=== PATIENT | female | born 1990 | race Two or more races ===

== ENCOUNTER 2017-01-27 22:47 | Outpatient (CLI) | payer MEDICAID ==
[2017-01-28 00:17] LABS: APPEARANCE,URINE SLIGHTLY-CLOUDY; BILIRUBIN,URINE NEGATIVE (NEGATIVE); GLUCOSE, URINE 50 mg/dL (NEGATIVE); KETONES,URINE TRACE mg/dL (NEGATIVE); LEUKOCYTE ESTERASE,URINE TRACE (NEGATIVE); NITRITE,URINE NEGATIVE (NEGATIVE); PROTEIN,URINE NEGATIVE (NEGATIVE); URINE SPECIFIC GRAVITY 1.029; UROBILINOGEN,URINE NEGATIVE mg/dL (<2.0)
[2017-01-28 00:31] LABS: URINE BARBITURATES SCREEN NEGATIVE; URINE METHADONE SCREEN NEGATIVE; URINE OPIATES LOW NEGATIVE; URINE PHENCYCLIDINE SCREEN NEGATIVE
== END 2017-01-28 00:51 | disposition home or self-care (01) ==
LOC: LC 22:47
PROVIDERS: ATTEND Obstetrics & Gynecology
PROC: 4A1HXCZ Monitoring of Products of Conception, Cardiac Rate, External Approach (ICD-10-PCS; principal; 2017-01-27)
DX: O47.03 False labor before 37 completed weeks of gestation, third trimester (principal); Z3A.29 29 weeks gestation of pregnancy
CPT/HCPCS: 76815; 80307; 81001

== ENCOUNTER 2017-03-24 23:04 | Outpatient (CLI) | payer MEDICAID ==
[2017-03-25 00:01] LABS: APPEARANCE,URINE SLIGHTLY-CLOUDY; BILIRUBIN,URINE NEGATIVE (NEGATIVE); GLUCOSE, URINE 50 mg/dL (NEGATIVE); KETONES,URINE TRACE mg/dL (NEGATIVE); LEUKOCYTE ESTERASE,URINE TRACE (NEGATIVE); NITRITE,URINE NEGATIVE (NEGATIVE); PROTEIN,URINE 30 mg/dL (NEGATIVE); URINE SPECIFIC GRAVITY 1.028; UROBILINOGEN,URINE NEGATIVE mg/dL (<2.0)
[2017-03-25 00:16] LABS: URINE BARBITURATES SCREEN NEGATIVE; URINE METHADONE SCREEN NEGATIVE; URINE OPIATES LOW NEGATIVE; URINE PHENCYCLIDINE SCREEN NEGATIVE
== END 2017-03-25 00:46 | disposition home or self-care (01) ==
LOC: LC 23:04
PROVIDERS: ATTEND Student in an Organized Health Care Education/Training Program
PROC: 4A1HXCZ Monitoring of Products of Conception, Cardiac Rate, External Approach (ICD-10-PCS; principal; 2017-03-24)
DX: O47.1 False labor at or after 37 completed weeks of gestation (principal); Z3A.37 37 weeks gestation of pregnancy
CPT/HCPCS: 59025; 80307; 81005

== ENCOUNTER 2017-04-04 05:00 | Inpatient (IN) | payer MEDICAID ==
[2017-04-01 10:36] LABS: ABSOLUTE EOSINOPHILS # (AUTO) 0.1 10^3/uL (0.0-0.6); ABSOLUTE LYMPHOCYTES (AUTO) 2.6 10^3/uL (0.5-4.7); ABSOLUTE MONOCYTES (AUTO) 0.5 10^3/uL (0.1-1.4); ABSOLUTE NEUT (AUTO) 7.8 10^3/uL (1.7-8.2); BASOPHILS % (AUTO) 0.3 % (0-2); EOSINOPHILS % (AUTO) 1.2 % (0-6); HEMATOCRIT 38.9 % (36.0-47.0); HEMOGLOBIN 12.7 g/dL (12.0-15.5); HGB HCT DIFFERENCE -0.8; LYMPHOCYTES % (AUTO) 23.1 % (13-45); MEAN CORPUSCULAR HEMOGLOBIN 28.1 pg (27.0-33.4); MEAN CORPUSCULAR HGB CONC 32.7 g/dL (32.0-36.0); MEAN CORPUSCULAR VOLUME 86 fl (80-97); MONOCYTES % (AUTO) 4.8 % (3-13); RED BLOOD COUNT 4.52 10^6/uL (3.72-5.28); RED CELL DISTRIBUTION WIDTH 13.4 % (11.5-14.0); SEGMENTED NEUTROPHILS % (AUTO) 70.6 % (42-78); WHITE BLOOD COUNT 11.1 10^3/uL (4.0-10.5)
[2017-04-01 10:38] LABS: APPEARANCE,URINE CLEAR; BILIRUBIN,URINE NEGATIVE (NEGATIVE); GLUCOSE, URINE NEGATIVE (NEGATIVE); KETONES,URINE NEGATIVE (NEGATIVE); LEUKOCYTE ESTERASE,URINE NEGATIVE (NEGATIVE); NITRITE,URINE NEGATIVE (NEGATIVE); PROTEIN,URINE NEGATIVE (NEGATIVE); UROBILINOGEN,URINE NEGATIVE mg/dL (<2.0)
[2017-04-01 10:50] LABS: URINE BARBITURATES SCREEN NEGATIVE; URINE METHADONE SCREEN NEGATIVE; URINE OPIATES LOW NEGATIVE; URINE PHENCYCLIDINE SCREEN NEGATIVE
[~2017-04-04 05:00] MED LIST: RINGERS SOLUTION,LACTATED 1,000 ML IV PRN
[2017-04-04] MEDS ORDERED: CEFAZOLIN 1 GM/D5W RTU 1 GM/50 ML RTUPB IV ONE (05:30)
[2017-04-04] MEDS ORDERED: PROPOFOL INJ 200 MG/20 ML VIAL IV ONE (07:32)
[2017-04-04] MEDS ORDERED: OXYTOCIN 10 UNIT/ML VIAL ONE (07:33)
[2017-04-04] MEDS ORDERED: FENTANYL CITRATE INJ/PF 100 MCG/2 ML AMPUL ONE (07:33)
[2017-04-04] MEDS ORDERED: CLINDAMYCIN 900 MG/D5W RTU 50 ML IV ONE (07:33)
[2017-04-04] MEDS ORDERED: MIDAZOLAM 2 MG/2 ML INJ ONE (07:33)
--- NOTE | 2017-04-04 09:02 | Non Stress Test Report ---
Non Stress Test Datetime Report Generated by CPN: 04/04/2017 09:02 DEMOGRAPHIC EGA NST: 37.3 INDICATION Indication for Study: Ordered by Provider URINE RESULTS Urine Protein, NST: Positive Urine Ketones - NST: Positive Urine Glucose - NST: Positive Urine Blood - NST: Negative MONITORING Monitor Explained: Monitor Explained; Test Explained; Patient Verbalized Understanding Time on Monitor: 03/24/2017 23:25 Time off Monitor: 03/25/2017 00:38 NST Duration: 73 NST INTERVENTIONS NST Interventions: PO Hydration Physician Notified NST: Dr. Lancaster BABY A: [id number] BABY A Movement : Present Contraction Frequency : Irregular FHR Baseline : 145 Accelerations : 15X15 Decelerations : None Variability : Moderate 6-25bpm NST Review: Meets Criteria for Reactive NST NST Review and Verified By : Aubrey Sevilla Rn NSVic Results: Reactive NST REPORT Report Trigger: Send Report
[2017-04-04] MEDS ORDERED: ACETAMINOPHEN 100 ML IV ONE (09:24)
[2017-04-04] MEDS ORDERED: MORPHINE SULFATE 10 MG/ML INJ ONE (10:21)
[2017-04-04] MEDS ORDERED: ACETAMINOPHEN 325 MG TABLET PO PRN (10:33)
[2017-04-04] MEDS ORDERED: RINGERS SOLUTION,LACTATED 1,000 ML IV PRN (10:33)
[2017-04-04] MEDS ORDERED: OXYCODONE-ACETAMINOPHEN 5-325 MG TABLET PO PRN (10:33)
[2017-04-04] MEDS ORDERED: MEASLES,MUMPS&RUBELLA VACC/PF 0.5 ML VIAL SUBCUT PRN (10:33)
[2017-04-04] MEDS ORDERED: OXYTOCIN/NORMAL SALINE 1,000 ML IV PRN (10:33)
[2017-04-04] MEDS ORDERED: PROMETHAZINE HCL INJ 25 MG/1 ML VIAL IV PRN (10:33)
[2017-04-04] MEDS ORDERED: HYDROMORPHONE HCL INJ/PF 2 MG/ML AMPULE IV PRN (10:33)
[2017-04-04] MEDS ORDERED: DIPH/PERTUSS(ACELL)/TETANUS VAC/PF 0.5 ML SYR (>=10YO) IM PRN (10:33)
[2017-04-04] MEDS ORDERED: SIMETHICONE 80 MG TAB.CHEW PO PRN (10:33)
[2017-04-04] MEDS ORDERED: LIDOCAINE 2% INJ-PF (20 MG/ML) 10 ML AMPUL ONE (14:35)
[2017-04-04] MEDS ORDERED: ONDANSETRON HCL INJ/PF 4 MG/2 ML SDV ONE (14:35)
[2017-04-04] MEDS ORDERED: PHENYLEPHRINE HCL INJ/PF 10 MG/1 ML SDV ONE (14:35)
[2017-04-04] MEDS: OXYCODONE-ACETAMINOPHEN 5-325 MG TABLET PO PRN ×2 (15:57→21:05)
[2017-04-04] MEDS: KETOROLAC TROMETHAMINE INJ/PF 30 MG/1 ML SDV IV SCH ×2 (15:57→22:38)
[2017-04-04] MEDS: DOCUSATE SODIUM 100 MG CAPSULE PO SCH (18:12)
[2017-04-05] MEDS: KETOROLAC TROMETHAMINE INJ/PF 30 MG/1 ML SDV IV SCH (05:30)
[2017-04-05] MEDS: OXYCODONE-ACETAMINOPHEN 5-325 MG TABLET PO PRN ×2 (05:36→19:48)
[2017-04-05 06:34] LABS: HEMATOCRIT 29.4 % (36.0-47.0); HEMOGLOBIN 9.9 g/dL (12.0-15.5); HGB HCT DIFFERENCE 0.3; MEAN CORPUSCULAR HEMOGLOBIN 28.8 pg (27.0-33.4); MEAN CORPUSCULAR HGB CONC 33.6 g/dL (32.0-36.0); MEAN CORPUSCULAR VOLUME 86 fl (80-97); RED BLOOD COUNT 3.43 10^6/uL (3.72-5.28); RED CELL DISTRIBUTION WIDTH 13.8 % (11.5-14.0); WHITE BLOOD COUNT 12.2 10^3/uL (4.0-10.5)
--- NOTE | 2017-04-05 09:10 | PDOC PROGRESS REPORT ---
Subjective-OB Subjective: Post Delivery Day: 27 year old. Denies any needs at this time Awake in room, mother sleeping at BS, doing well, has been OOB walking, passing gas, eating well, good pain relief. Baby weighed 8-14, NO CIRC, breast feeding , voiding, no c/o Physical Exam (OB) Vital Signs: Temp Pulse Resp BP Pulse Ox 98.3 F 90 17 106/62 99 04/05/17 08:13 04/05/17 08:13 04/05/17 08:13 04/05/17 08:13 04/05/17 08:13 Intake & Output 04/04/17 04/05/17 04/06/17 06:59 06:59 06:59 Intake Total 1475 Output Total 1700 Balance -225 Weight 91.626 kg - Dressing Removed: No - medipore dressing in place with opsite dressing underneath Incision: Dressing - Lochia Lochia Amount: Small 10-25 ml Lochia Color: Rubra/Red - Abdomen Description: Tender, Soft Hernia Present: No Fundal Description: Firm Fundal Height: u/u - u/2 Objective-Diagnostic Laboratory: 04/05/17 06:23 04/05/17 06:23 WBC 12.2 H RBC 3.43 L Hgb 9.9 L Hct 29.4 L MCV 86 MCH 28.8 MCHC 33.6 RDW 13.8 Plt Count 218 Assessment and Plan(PN) - Assessment and Plan (1) Status post repeat low transverse section Is this a current diagnosis for this admission?: Yes (2) Anemia Qualifiers: Other causes of anemia: acute posthemorrhagic Is this a current diagnosis for this admission?: Yes - Time Spent with Patient Time with patient: Less than 15 minutes Smoking Education Provided: Over 3 minutes Medications reviewed and adjusted accordingly: Yes - Disposition Anticipated Discharge: Home Within: within 48 hours
[2017-04-05] MEDS: PRENATAL VITAMIN W-O CA NO5/FE FUMARATE/FA CAPSULE PO SCH (10:03)
[2017-04-05] MEDS: DOCUSATE SODIUM 100 MG CAPSULE PO SCH ×2 (10:03→17:21)
[2017-04-05] MEDS: IBUPROFEN 800 MG TABLET PO SCH ×3 (11:53→23:33)
[2017-04-06] MEDS: IBUPROFEN 800 MG TABLET PO SCH ×2 (06:11→11:28)
[2017-04-06] MEDS: OXYCODONE-ACETAMINOPHEN 5-325 MG TABLET PO PRN (06:14)
[2017-04-06] MEDS: PRENATAL VITAMIN W-O CA NO5/FE FUMARATE/FA CAPSULE PO SCH (09:19)
[2017-04-06] MEDS: DOCUSATE SODIUM 100 MG CAPSULE PO SCH (09:19)
--- NOTE | 2017-04-06 10:55 | PDOC DISCHARGE SUMMARY ---
Final Diagnosis Discharge Date: 04/06/17 - Final Diagnosis (1) Anemia Is this a current diagnosis for this admission?: Yes (2) Status post repeat low transverse section Is this a current diagnosis for this admission?: Yes Discharge Data - Discharge Medication Home Medications: Pnv95/Ferrous Fumarate/FA [ Vitamins Tablet] 1 tab PO DAILY 01/27/17 Ranitidine HCl [Zantac 75 mg Tablet] 75 mg PO BID 04/01/17 Docusate Sodium [Colace 100 mg Capsule] 100 mg PO BID #60 capsule 04/06/17 Ibuprofen [Motrin 800 mg Tablet] 800 mg PO Q6 #60 tablet 04/06/17 Oxycodone HCl/Acetaminophen [Percocet 5-325 mg Tablet] 2 tab PO Q4HP PRN #30 tablet 04/06/17 Gestational Age: 39.2 Reason(s) for Admission: Ceasarean Section-Repeat Procedures: NST Intrapartum Procedure(s): : Low Cervical, Transverse - Lyman Data Baby 1 Male Home with Mother: Yes Complications: No - Diagnosis Test Laboratory: Temp Pulse Resp BP Pulse Ox 98.2 F 78 16 115/70 99 04/06/17 08:19 04/06/17 08:19 04/06/17 08:19 04/06/17 08:19 04/06/17 08:19 04/01/17 04/01/17 04/05/17 09:50 09:52 06:23 RBC 4.52 3.43 L Hgb 12.7 9.9 L Hct 38.9 29.4 L Urine Opiates Screen NEGATIVE - Discharge information/Instructions Discharge Activity: Activity As Tolerated, No Driving, No Lifting Over 10 Pounds , Pelvic Rest, No tub bath Discharge Diet: Regular Disposition: HOME, SELF-CARE Follow up with: [facility] in: 1, Days
[2017-04-06 11:13] VITALS: BP 110/70
[2017-04-06] MEDS ORDERED: ONDANSETRON 4 MG TAB.RAPDIS ONE (11:26)
--- NOTE | 2017-05-10 15:32 | OPERATIVE REPORT E ---
Operative Report NAME: STEPHEN SWAIN : 1990 AGE: 27Y DATE OF SURGERY: 04/04/2017 ROOM: 227 PREOPERATIVE DIAGNOSES: 1. A 39 WEEK INTRAUTERINE . 2. HISTORY OF SECTION FOR REPEAT SECTION. POSTOPERATIVE DIAGNOSES: 1. A 39 WEEK INTRAUTERINE . 2. HISTORY OF SECTION FOR REPEAT SECTION. OPERATION: Repeat low transverse section. ROOFER APPRENTICE: None. SURGEON: Demond Pryor D.O. ANESTHESIA: Spinal. COMPLICATIONS: None. PATHOLOGY: Placenta. ESTIMATED BLOOD LOSS: 600 mL. FINDINGS: 1. Viable male infant at 0827 hours on 04/04/2017 with Apgars of 8 at one and 9 at five. 2. Normal-appearing bilateral fallopian tubes and ovaries. PROCEDURE: The patient was taken to the operating room where spinal anesthesia was administered. Once this was found to be adequate, she was placed in the dorsal supine position and prone on the operating room table with a left doherty tilt. She was then prepped and draped in the normal sterile fashion. A scalpel was then used to make a Pfannenstiel skin incision. The skin incision was carried down through the subcutaneous tissue to the layer of the fascia. The fascia was then incised in the midline and then fascial incision was then extended bilaterally using the Bovie cautery. The superior fascial edge was grasped with Ev clamps, elevated, and the rectus muscles were dissected off sharply and bluntly. Attention was then turned to the inferior fascial edge which was grasped with Ev clamps, elevated, and rectus muscles were dissected off sharply and bluntly. The rectus muscles were then in the midline. The peritoneum was identified and entered bluntly with the surgeon's hands. A bladder blade was inserted. A scalpel was then used to make a low transverse hysterotomy incision. The was found to be in cephalic position and delivered through this incision without difficulty and atraumatically. The nose and mouth were suctioned. The cord was clamped and cut. The infant was handed off to the waiting nurses. The placenta was then manually removed from the uterus. The uterus was then exteriorized and cleared of all debris. The uterus was then exteriorized. The hysterotomy incision was then reapproximated using 2 layers of 1-0 Vicryl in a running locking fashion. Following closure of the second layer, excellent hemostasis was noted. The uterus was then returned to the abdomen. Again, the hysterotomy incision was reinspected and found to have excellent hemostasis. The rectus muscle were then reapproximated using 1-0 Vicryl interrupted sutures. The fascia was then closed using 1-0 Vicryl in a running nonlocking fashion. The subcutaneous space was then made hemostatic using Bovie cautery and the skin was then closed with absorbable jay, covered with an Op-Site and then with a pressure dressing. At this point in time, the procedure was terminated. All sponge, lap, and needle counts were correct x2. The patient tolerated the procedure well. The patient was taken to the recovery room in stable condition. DICTATING PHYSICIAN: Demond Pryor DO [id number] PHY#: [id number] ID: [id number] JOB#: [id number] ACCT: [id number] cc:Demond Pryor D.O. >
== END 2017-04-06 12:08 | disposition home or self-care (01) | DRG 765 ==
LOC: 2S 05:00
PROVIDERS: ADMIT Obstetrics & Gynecology; ATTEND Obstetrics & Gynecology
PROC: 4A1HXCZ Monitoring of Products of Conception, Cardiac Rate, External Approach (ICD-10-PCS; 2017-04-04)
PROC: 10D00Z1 Extraction of Products of Conception, Low, Open Approach (ICD-10-PCS; principal; 2017-04-04 07:45)
DX: O34.211 Maternal care for low transverse scar from previous cesarean delivery (principal); O99.354 Diseases of the nervous system complicating childbirth; D62 Acute posthemorrhagic anemia; G43.909 Migraine, unspecified, not intractable, without status migrainosus; O99.02 Anemia complicating childbirth; Z83.3 Family history of diabetes mellitus; Z3A.39 39 weeks gestation of pregnancy; Z37.0 Single live birth
CPT/HCPCS: 1961; 36415; 59025; 80307; 81001; 85025; 85027; 86850; 86900; 86901; 94799; J0131; J1170; J1885; J2250; J2270; J2370; J2405; J2550; J2590; J2704; J3010; J3490; J7120; S0119

== ENCOUNTER 2017-08-07 04:16 | Emergency (ER) | payer MEDICAID ==
[2017-08-07 04:22] VITALS: BP 117/81
[2017-08-07] MEDS ORDERED: ACETAMINOPHEN WITH CODEINE #3 TABLET PO ONE (04:40)
--- NOTE | 2017-08-07 04:45 | ER Document Report ---
HPI - HPI Patient complains to provider of: dental pain Onset: Other - 10 days Onset/Duration: Worse Quality of pain: Achy Pain Level: 4 Context: Patient is 10 days status post dental extraction of her wisdom teeth. Patient denies any fever. Patient complains of continued pain at her extraction sites. Patient does complain of a suture that feels like it is poking her cheek on the left upper side. Patient has been taking antibiotics since her extraction and has 4 more days of antibiotics. Patient was given a prescription for Percocet but states that she is unable to take the medication as it makes her feel dizzy and lightheaded. Associated Symptoms: Other - Dental pain. denies: Headache, Nausea Exacerbated by: Denies Relieved by: Denies Similar symptoms previously: No Recently seen / treated by doctor: Yes - ROS ROS below otherwise negative: Yes Systems Reviewed and Negative: Yes All other systems reviewed and negative - CONSTITUTIONAL Constitutional: DENIES: Fever, Chills - EENT Notes: dental pain - RESPIRATORY Respiratory: DENIES: Coughing - GASTROINTESTINAL Gastrointestinal: DENIES: Nausea - MUSCULOSKELETAL Musculoskeletal: DENIES: Back Pain, Neck Pain - DERM Skin Color: Normal Skin Problems: None Past Medical History - General Information source: Patient - Social History Smoking Status: Never Smoker Frequency of alcohol use: None Drug Abuse: None Occupation: none Lives with: Family Family History: Reviewed & Not Pertinent Patient has suicidal ideation: No Patient has homicidal ideation: No - Medical History Medical History: Negative Renal/ Medical History: Denies: Hx Peritoneal Dialysis GI Medical History: Reports: Hx Gastroesophageal Reflux Disease - during . Denies: Hx Hiatal Hernia, Hx Ulcer Past Surgical History: Reports: Hx Section, Hx Oral Surgery Vertical Provider Document - CONSTITUTIONAL Agree With Documented VS: Yes Exam Limitations: No Limitations General Appearance: WD/WN, No Apparent Distress - INFECTION CONTROL TRAVEL OUTSIDE OF THE [place] IN LAST 30 DAYS: No - HEENT HEENT: Atraumatic, Normocephalic Mouth Diagram: 1 - tender, s/p extraction 2 - white, hard material, tender with palpation with shallow ulceration to buccal mucosa that abuts this white material - NECK Neck: Normal Inspection, Supple. negative: Lymphadenopathy-Left, Lymphadenopathy-Right - RESPIRATORY Respiratory: No Respiratory Distress O2 Sat by Pulse Oximetry: 99 - MUSCULOSKELETAL/EXTREMETIES Musculoskeletal/Extremeties: MAEW - NEURO Level of Consciousness: Awake, Alert, Appropriate - DERM Integumentary: Warm, Dry, No Rash Course - Re-evaluation Re-evalutation: 08/07/17 04:42 Patient with white hard material to left upper jaw concerning for possible tooth fragment. Patient encouraged to follow-up with oral surgeon on Tuesday when their office opens for further evaluation. Patient states she does have 4 more days worth of antibiotic. Patient encouraged to take her Motrin as previously prescribed as well as her antibiotic. Patient unable to tolerate Percocet due to side effects of the medication, will attempt to give patient a different pain medication to help manage her symptoms. Controlled substance database reviewed - Vital Signs Vital signs: Temp Pulse Resp BP Pulse Ox 98.3 F 84 18 117/81 99 08/07/17 04:18 08/07/17 04:18 08/07/17 04:18 08/07/17 04:18 08/07/17 04:18 Discharge - Discharge Clinical Impression: Pain, dental, hx dental extractions Condition: Stable Disposition: HOME, SELF-CARE Instructions: Oral Narcotic Medication ([facility]) Additional Instructions: Return immediately for any new or worsening symptoms Followup with your dental care provider on Tuesday when her office opens Continue to take your antibiotics as previously prescribed in addition to your Motrin. Take the Tylenol with codeine instead of the Percocet, do not take both of these medications together. Prescriptions: Acetaminophen with Codeine [Acetaminophen-Cod #3 Tablet] 1 each PO Q6 PRN #15 tablet PRN Reason: Referrals: [facility] [Provider Group] - Follow up as needed
== END 2017-08-07 05:06 | disposition home or self-care (01) ==
LOC: ER 04:16
DX: K12.1 Other forms of stomatitis (principal); K08.89 Other specified disorders of teeth and supporting structures; Z98.890 Other specified postprocedural states
CPT/HCPCS: 99282

== ENCOUNTER 2018-09-11 15:33 | Emergency (ER) | payer MEDICAID ==
--- NOTE | 2018-09-11 17:45 | ER Document Report ---
ED Medical Screen (RME) - General Chief Complaint: Abdominal Pain Stated Complaint: LEFT SIDE PAIN Time Seen by Provider: 09/11/18 17:43 Mode of Arrival: Ambulatory Information source: Patient, [facility] Records Notes: 28-year-old female with no reported past medical history presents with complaint of left flank pain that started 14 hours prior to arrival. Patient denies dysuria, hematuria. Last menstrual period was August 15, 2018. Surgical history significant for 2 c- sections. I have greeted and performed a rapid initial assessment of this patient. A comprehensive ED assessment and evaluation of the patient, analysis of test results and completion of medical decision making process we will be contacted by additional ED providers. PHYSICAL EXAMINATION: Vital signs reviewed within normal limits- GENERAL: Well-appearing, well-nourished and in no acute distress. LUNGS: No respiratory distress Musculoskeletal: Normal range of motion NEUROLOGICAL: Normal speech, normal gait. PSYCH: Normal mood, normal affect. SKIN: Warm, Dry, normal turgor, no rashes or lesions noted. TRAVEL OUTSIDE OF THE [place] IN LAST 30 DAYS: No - HPI Onset: This morning Onset/Duration: Gradual, Intermittent Quality of pain: Stabbing Severity: Mild Associated Symptoms: Abdominal pain, Nausea. denies: Chest pain, Headache, Shortness of breath, Vomiting Exacerbated by: Deep breathing Relieved by: Denies Similar symptoms previously: No Recently seen / treated by doctor: No - Related Data Smoking: Non-smoker Frequency of alcohol use: None Drug Abuse: None Allergies/Adverse Reactions: apple Allergy (Intermediate, Verified 08/07/17 04:58) Generalized Itching penicillin G Allergy (Verified 08/07/17 04:58) Past Medical History Renal/ Medical History: Denies: Hx Peritoneal Dialysis GI Medical History: Reports: Hx Gastroesophageal Reflux Disease - during . Denies: Hx Hiatal Hernia, Hx Ulcer Past Surgical History: Reports: Hx Section, Hx Oral Surgery Physical Exam - Vital signs Vitals: Temp Pulse Resp BP Pulse Ox 98.5 F 80 14 125/76 99 09/11/18 15:39 09/11/18 15:39 09/11/18 15:39 09/11/18 15:39 09/11/18 15:39 Course - Vital Signs Vital signs: Temp Pulse Resp BP Pulse Ox 98.5 F 80 14 125/76 99 12/17/18 15:39 09/11/18 15:39 09/11/18 15:39 09/11/18 15:39 09/11/18 15:39 Doctor's Discharge - Discharge Referrals: JERAD OCHOA MD [Primary Care Provider] - Follow up as needed
[2018-09-11 18:36] LABS: ABSOLUTE EOSINOPHILS # (AUTO) 0.2 10^3/uL (0.0-0.6); ABSOLUTE LYMPHOCYTES (AUTO) 3.9 10^3/uL (0.5-4.7); ABSOLUTE MONOCYTES (AUTO) 0.7 10^3/uL (0.1-1.4); BASOPHILS % (AUTO) 0.4 % (0-2); EOSINOPHILS % (AUTO) 1.5 % (0-6); HEMATOCRIT 40.7 % (36.0-47.0); HEMOGLOBIN 13.9 g/dL (12.0-15.5); LYMPHOCYTES % (AUTO) 33.2 % (13-45); MEAN CORPUSCULAR HEMOGLOBIN 29.7 pg (27.0-33.4); MEAN CORPUSCULAR HGB CONC 34.2 g/dL (32.0-36.0); MEAN CORPUSCULAR VOLUME 87 fl (80-97); MONOCYTES % (AUTO) 5.8 % (3-13); PLATELET COUNT 281 10^3/uL (150-450); RED BLOOD COUNT 4.69 10^6/uL (3.72-5.28); RED CELL DISTRIBUTION WIDTH 12.7 % (11.5-14.0); SEGMENTED NEUTROPHILS % (AUTO) 59.1 % (42-78); TOTAL CELLS COUNTED % (AUTO) 100 %; WHITE BLOOD COUNT 11.8 10^3/uL (4.0-10.5)
[2018-09-11 18:37] LABS: APPEARANCE,URINE CLEAR; BILIRUBIN,URINE NEGATIVE (NEGATIVE); COLOR,URINE STRAW; GLUCOSE, URINE NEGATIVE (NEGATIVE); KETONES,URINE NEGATIVE (NEGATIVE); LEUKOCYTE ESTERASE,URINE NEGATIVE (NEGATIVE); NITRITE,URINE NEGATIVE (NEGATIVE); PROTEIN,URINE NEGATIVE (NEGATIVE); URINE SPECIFIC GRAVITY 1.008; UROBILINOGEN,URINE NEGATIVE mg/dL (<2.0)
[2018-09-11 18:57] LABS: ALANINE AMINOTRANSFERASE 82 U/L (9-52); ALBUMIN 4.4 g/dL (3.5-5.0); ALKALINE PHOSPHATASE 91 U/L (38-126); ANION GAP 11 (5-19); ASPARTATE AMINO TRANSFERASE 49 U/L (14-36); BILIRUBIN,DIRECT 0.3 mg/dL (0.0-0.4); BILIRUBIN,TOTAL 0.4 mg/dL (0.2-1.3); BLOOD UREA NITROGEN 16 mg/dL (7-20); CALCIUM 9.9 mg/dL (8.4-10.2); CARBON DIOXIDE 25 mmol/L (22-30); CHLORIDE 103 mmol/L (98-107); GLUCOSE 99 mg/dL (75-110); LIPASE 165.8 U/L (23-300); POTASSIUM 4.1 mmol/L (3.6-5.0); SODIUM 138.9 mmol/L (137-145); TOTAL PROTEIN 7.5 g/dL (6.3-8.2)
--- NOTE | 2018-09-11 19:04 | RADIOLOGY REPORT (SQ) ---
EXAM DESCRIPTION: ACUTE ABDOMEN SERIES COMPLETED DATE/TIME: 09/11/2018 6:53 pm REASON FOR STUDY: Left upper quadrant abdominal pain COMPARISON: None. NUMBER OF VIEWS: Three views. TECHNIQUE: Frontal chest, supine abdomen and upright/decubitus abdomen radiographic images acquired. LIMITATIONS: None. FINDINGS: CHEST: Lungs clear of infiltrates. FREE AIR: None. No abnormal gas collections. BOWEL GAS PATTERN: Nonobstructive pattern. No dilated loops or air fluid levels. CALCIFICATIONS: No suspicious calcifications. HARDWARE: None in the abdomen. SOFT TISSUES: No gross mass or suggestion of organomegaly. BONES: No acute fracture. No worrisome bone lesions. OTHER: No other significant finding. IMPRESSION: NO RADIOGRAPHIC EVIDENCE FOR ACUTE ABDOMINAL DISEASE. TECHNICAL DOCUMENTATION: JOB ID: [id number] [employer]- All Rights Reserved Reading location - IP/workstation name: [email or web address]
[2018-09-11 22:03] VITALS: BP 117/64
--- NOTE | 2018-09-11 22:30 | RADIOLOGY REPORT (SQ) ---
EXAM DESCRIPTION: CT ABDOMEN PELVIS WITH IV CONTRAST COMPLETED DATE/TME: 09/11/2018 20:20 CLINICAL HISTORY: 28 years, Female, left upper and lower abdominal pain with increased COMPARISON: EXAM DESCRIPTION: CLINICAL HISTORY: left upper and lower abdominal pain with increased COMPARISON: None Available TECHNIQUE: Contiguous axial images of the abdomen and pelvis were obtained after the administration of intravenous contrast followed by reconstruction images.This exam was performed according to our departmental dose-optimization program, which includes automated exposure control, adjustment of the mA and/or kV according to patient size and/or use of iterative reconstruction technique. FINDINGS: The liver, spleen, pancreas and kidneys are within normal limits. There is no hydronephrosis. The gallbladder is unremarkable. Adrenal glands are within normal limits. Aorta is normal in caliber and tapering. No significant free fluid. No free air. No bowel obstruction. There is no stranding of the mesenteric fat. The appendix appears normal. No evidence of periappendiceal inflammation. IMPRESSION: No acute intra-abdominal abnormality TECHNIQUE: Images stored on PACS. All CT scanners at this facility use dose modulation, iterative reconstruction, and/or weight based dosing when appropriate to reduce radiation dose to as low as reasonably achievable (ALARA). [facility]: Dose Right [facility]: CareDose [facility]: Dose Right [facility]: Teradose 4D [facility]: [employer] Power LIMITATIONS: EXAM DESCRIPTION: CLINICAL HISTORY: left upper and lower abdominal pain with increased COMPARISON: None Available TECHNIQUE: Please note that this exam was performed after significant delay following contrast bolus because of technical failure of the first CT scanner immediately following bolus injection. The patient was moved to a second CT scanner and the scan was performed. Contiguous axial images of the abdomen and pelvis were obtained after the administration of intravenous contrast followed by reconstruction images.This exam was performed according to our departmental dose-optimization program, which includes automated exposure control, adjustment of the mA and/or kV according to patient size and/or use of iterative reconstruction technique. 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 No obstruction of either renal collecting system. There is mild thickening of the wall of the distal descending colon and sigmoid colon with slight soft tissue stranding of the surrounding fat suggesting inflammation. No obstruction or local perforation. A small amount of fat extends through a periumbilical hernia, with no bowel. Lung bases are clear. The liver, spleen, pancreas and kidneys are otherwise within normal limits. There is no hydronephrosis. The gallbladder is not well distended and likely nonfasting but otherwise unremarkable. Adrenal glands are within normal limits. Aorta is normal in caliber and tapering. No significant free fluid. No free air. No bowel obstruction. There is no additional stranding of the mesenteric fat. The appendix appears normal. No evidence of periappendiceal inflammation. IMPRESSION: Findings are most consistent with mild inflammation of the distal colon. No other acute abnormality. The appendix appears normal.
--- NOTE | 2018-09-11 23:01 | ER Document Report ---
ED GI/ - General Chief Complaint: Abdominal Pain Stated Complaint: LEFT SIDE PAIN Time Seen by Provider: 09/11/18 17:43 Mode of Arrival: Ambulatory Information source: Patient, Relative Notes: Patient is a well-nourished well-developed 28-year-old female comes to emergency room complaining of lower abdominal pain left-sided pain with radiation to the right side of the lower abdominal area. Patient states nothing makes it better or worse however she does state that when she rotates into it it appears to get worse and when she rotates away gets better. Patient denies any nausea vomiting or diarrhea. She states that she has been feeling extremely tired she is eating but not her normal meals. Her last menstrual period was August 15 she has no other medical problems and she does not smoke. TRAVEL OUTSIDE OF THE [place] IN LAST 30 DAYS: No - HPI Patient complains to provider of: Abdominal pain. No: Dysuria Onset: Other - 5 AM this morning Timing/Duration: Sudden, Persistent, Worse Quality of pain: Achy, Sharp, Throbbing Severity at maximum: Moderate Severity in ED: Moderate Pain Level: 3 Location: [facility] Adult Front & Back Diagram: 1 - Primary area of discomfort. Vaginal bleeding (Compared to normal period): None Sexual history: Active. denies: New partner, Multiple partners Associated symptoms: None. denies: Painful intercourse Exacerbated by: Movement, Walking Relieved by: Denies Similar symptoms previously: No Recently seen / treated by doctor: No - Related Data Allergies/Adverse Reactions: apple Allergy (Intermediate, Verified 08/07/17 04:58) Generalized Itching penicillin G Allergy (Verified 08/07/17 04:58) Past Medical History - General Information source: [facility] Records - Social History Smoking Status: Never Smoker Cigarette use (# per day): No Chew tobacco use (# tins/day): No Smoking Education Provided: No Frequency of alcohol use: None Drug Abuse: None Family History: Reviewed & Not Pertinent Patient has suicidal ideation: No Patient has homicidal ideation: No Renal/ Medical History: Denies: Hx Peritoneal Dialysis GI Medical History: Reports: Hx Gastroesophageal Reflux Disease - during . Denies: Hx Hiatal Hernia, Hx Ulcer Past Surgical History: Reports: Hx Section, Hx Oral Surgery Review of Systems - Review of Systems Constitutional: No symptoms reported EENT: No symptoms reported Cardiovascular: No symptoms reported Respiratory: No symptoms reported Gastrointestinal: No symptoms reported, See HPI, Abdominal pain Genitourinary: No symptoms reported Female Genitourinary: No symptoms reported Musculoskeletal: No symptoms reported Skin: No symptoms reported Hematologic/Lymphatic: No symptoms reported Neurological/Psychological: No symptoms reported -: Yes All other systems reviewed and negative Physical Exam - Vital signs Vitals: Temp Pulse Resp BP Pulse Ox 98.5 F 80 14 125/76 99 09/11/18 15:39 09/11/18 15:39 09/11/18 15:39 09/11/18 15:39 09/11/18 15:39 Interpretation: Normal - Notes Notes: PHYSICAL EXAMINATION: GENERAL: Well-appearing, well-nourished and in no acute distress. HEAD: Atraumatic, normocephalic. EYES: Pupils equal round and reactive to light, extraocular movements intact, conjunctiva are normal. ENT: Nares patent, oropharynx clear without exudates. Moist mucous membranes. NECK: Normal range of motion, supple without lymphadenopathy LUNGS: Breath sounds clear to auscultation bilaterally and equal. No wheezes rales or rhonchi. HEART: Regular rate and rhythm without murmurs ABDOMEN: Patient's abdominal exam is found to have bowel sounds present all 4 quads. Patient is mildly tender in the left lower quadrant with some radiation to the lateral side to palpation. There is no flank or back pain appreciable. Movement seems to increase the discomfort in the lower left quadrant. Further examination shows that to the left lower quadrant is tender to percuss. This is given a slight feeling of a colitis presentation. The exam on the whole though is not remarkable or concerning. Female : deferred Musculoskeletal: Normal range of motion, no pitting or edema. No cyanosis. NEUROLOGICAL: Normal speech, normal gait. Normal sensory, motor exams PSYCH: Normal mood, normal affect. SKIN: Warm, Dry, normal turgor, no rashes or lesions noted. Course - Re-evaluation Re-evalutation: 09/12/18 03:09 Patient's labs come back with the only abnormality of the white count is 11.4. She has no fever she has no nausea no vomiting we can reproduce most of the discomfort with movements. She has had no history of recent antibiotic usage nothing to lead me into the line of colitis but patient was insistent that something was wrong her belly exam was kind of like a presentation for colitis of some sort primarily diverticulitis. I went ahead and scanned patient it comes back that patient does have some inflammatory changes in the colon area does not goes far to say it is diverticulitis or diverticulosis or colitis but does say inflammatory changes in the area. I decided to go ahead and treat this as a colitis type presentation and I did place patient on Cipro and Flagyl. I have asked her to follow-up with her primary care provider. I guess this is where they tell you to listen to your patients because physical examination was not substantially abnormal and certainly not enough to convince me that this was a colitis presentation. So CT was confirmatory that there was a problem in the area so we are treating it as such. - Vital Signs Vital signs: Temp Pulse Resp BP Pulse Ox 98.5 F 65 20 117/64 99 09/11/18 21:59 09/11/18 21:59 09/11/18 21:59 09/11/18 21:59 09/11/18 21:59 - Laboratory Result Diagrams: 09/11/18 18:15 09/11/18 18:15 Laboratory results interpreted by me: 09/11/18 09/11/18 18:15 18:15 WBC 11.8 H AST 49 H ALT 82 H Discharge - Discharge Clinical Impression: Colitis Condition: Stable Disposition: HOME, SELF-CARE Instructions: Abdominal Pain ([facility]), Antispasmodics ([facility]), Colitis, Nonspecific ([facility]) Additional Instructions: ABDOMINAL PAIN: There are many causes of abdominal pain. Pain can mean a serious problem requiring surgery (such as appendicitis). It can also be an innocent problem that goes away on its own (such as a viral infection). Often, time must pass to determine the cause of pain. The physician does not feel that hospitalization is necessary, at present. Things may change within the next 24 hours. Call the doctor or come back for re- examination if any problems occur, such as: (1) Pain that becomes more severe, steady, or becomes concentrated in one specific area. Also, pain that is more severe with movement or coughing. (2) Vomiting that persists or becomes more frequent. (3) Blood in the vomitus, urine, or bowel movements. Blood in the stool may have a tarry or black appearance. (4) Shaking chills or fever greater than 100 degrees F. (5) The abdomen becomes more distended or swollen. (6) Bowel movements cease. (7) Failure to improve as expected. COLITIS, NONSPECIFIC: Colitis is an inflammatory disease of the large intestine which affects the lining of the bowel. The cause is uncertain, though it is often caused by an infection. In some cases, the symptoms resolve and can return again in the future. Colitis is characterized by abdominal pain, often nausea and vomiting, and either diarrhea or difficulty with bowel movements. Sometimes blood will be present in the bowel movements. Fever is often present as well. Milder cases of colitis can be managed as an outpatient with medications for nausea and vomiting and pain, oral fluid therapy, and perhaps antibiotics, if a bacterial origin is suspected. Antidiarrhea medicine should usually be avoided in colitis. If you have increasing abdominal pain, repeated vomiting, fever, rectal bleeding, or worsening diarrhea, you should return for re-evaluation. ANTIBIOTIC THERAPY: You have been given an antibiotic prescription. It's important that you take all the medication, unless instructed otherwise by your physician. Failure to complete the entire course can result in relapse of your condition. Common side effects of antibiotics include nausea, intestinal cramping, or diarrhea. Women may develop vaginal yeast infections, and babies can get yeast (thrush) in the mouth following the use of antibiotics. Contact your physician if you develop significant side effects from this medication. Allergy to this antibiotic can result in hives, wheezing, faintness, or itching. If symptoms of allergy occur, stop the medication and call the doctor. CIPROFLOXACIN: You have been given an antibacterial agent, ciprofloxacin (Cipro). This medicine is not related to the penicillins, sulfas, cephalosporins, or tetracyclines. It is often given to patients who are allergic to these drugs. It has been chosen for you either because other drugs are not appropriate, or because of the nature of your problem. Cipro should not be taken with antacids, as these can decrease its effectiveness. It can be taken without regard to meals. CIPRO SHOULD NOT BE TAKEN BY CHILDREN, NURSING WOMEN, OR WOMEN. Although Cipro is usually well-tolerated, common side effects can include nausea and diarrhea. Contact your doctor if you experience any unusual symptoms while on this medication, such as joint pain or swelling, shortness of breath, wheezing, faintness, or hives. METRONIDAZOLE: Metronidazole (Flagyl) has been prescribed. This medication is used to kill a type of bacteria called anaerobes, and protozoan parasites such as trichomonas and Giardia. Flagyl often causes a metallic taste in the mouth and mild nausea. Do not use alcohol in any form with Flagyl (including alcohol in medication elixirs). Flagyl interacts with alcohol to cause flushing, palpitations, headache, stomach cramps, and vomiting. Do not use Flagyl if you are taking Antabuse (disulfiram). Call the doctor at once if you develop rash, shortness of breath, itching, or lightheadedness. FOLLOW-UP CARE: If you have been referred to a physician for follow-up care, call the physician s office for an appointment as you were instructed or within the next two days. If you experience worsening or a significant change in your symptoms, notify the physician immediately or return to the Emergency Department at any time for re-evaluation. Prescriptions: Ciprofloxacin HCl [Cipro 500 mg Tablet] 500 mg PO BID #14 tablet Metronidazole [Flagyl] 500 mg PO BID #14 tablet Referrals: JERAD OCHOA MD [Primary Care Provider] - Follow up as needed
== END 2018-09-11 23:11 | disposition home or self-care (01) ==
LOC: ER 15:33
DX: K52.9 Noninfective gastroenteritis and colitis, unspecified (principal); R10.30 Lower abdominal pain, unspecified; Z88.0 Allergy status to penicillin
CPT/HCPCS: 36415; 74022; 74177; 80053; 81001; 81025; 83690; 85025; 99284

== ENCOUNTER 2018-09-12 15:32 | Emergency (ER) | payer MEDICAID ==
[2018-09-12] MEDS ORDERED: KETOROLAC TROMETHAMINE 60 MG/2 ML SDV IM ONE (16:18)
[2018-09-12] MEDS ORDERED: HYDROMORPHONE HCL 2 MG TABLET PO ONE (16:18)
--- NOTE | 2018-09-12 16:20 | ER Document Report ---
ED General - General Chief Complaint: Abdominal Pain Stated Complaint: LEFT SIDE ABDOMINAL PAIN Time Seen by Provider: 09/12/18 16:13 Mode of Arrival: Ambulatory Information source: Patient Notes: 28-year-old female with no significant past medical history presents for the second time in 2 days with complaint of right upper quadrant abdominal pain. Patient was seen yesterday in the emergency department and after a full workup including CAT scan and blood work was diagnosed with colitis. Patient was discharged home with Cipro and Flagyl which she has been taking but states that the pain is still present. Patient denies any fever, chills, nausea, vomiting, dysuria, hematuria, lower abdominal pain. TRAVEL OUTSIDE OF THE [place] IN LAST 30 DAYS: No - HPI Onset: Other Onset/Duration: Persistent Quality of pain: Throbbing Severity: Moderate Associated symptoms: denies: Chest pain, Fever, Nausea, Vomiting, Shortness of breath Exacerbated by: Denies Relieved by: Denies Similar symptoms previously: Yes Recently seen / treated by doctor: Yes - Yesterday - Related Data Allergies/Adverse Reactions: apple Allergy (Intermediate, Verified 08/07/17 04:58) Generalized Itching penicillin G Allergy (Verified 08/07/17 04:58) Past Medical History - General Information source: Patient - Social History Smoking Status: Never Smoker Frequency of alcohol use: None Drug Abuse: None Lives with: Spouse/Significant other Family History: Reviewed & Not Pertinent Patient has suicidal ideation: No Patient has homicidal ideation: No Renal/ Medical History: Denies: Hx Peritoneal Dialysis GI Medical History: Reports: Hx Gastroesophageal Reflux Disease - during . Denies: Hx Hiatal Hernia, Hx Ulcer Past Surgical History: Reports: Hx Section, Hx Oral Surgery Review of Systems - Review of Systems Notes: REVIEW OF SYSTEMS: CONSTITUTIONAL : Denies fever, chills, or sweats. Denies recent illness. Denies weight loss, recent hospitalizations. EENT: Denies visual changes, eye pain. Denies sore throat, oral lesions, difficulty swallowing. CARDIOVASCULAR: Denies chest pain. Denies palpitations. Denies lower extremity edema. RESPIRATORY: Denies cough. Denies shortness of breath, wheezing. GASTROINTESTINAL: Denies abdominal distention. Denies nausea, vomiting, or diarrhea. Denies blood in vomitus, stools, or per rectum. Denies black, tarry stools. Denies constipation. GENITOURINARY: Denies difficulty urinating, painful urination, frequency, blood in urine, or vaginal discharge. MUSCULOSKELETAL: Denies back or neck pain or stiffness. Denies joint pain or swelling. SKIN: Denies rash, lesions or sores. HEMATOLOGIC : Denies easy bruising or bleeding. LYMPHATIC: Denies swollen glands. NEUROLOGICAL: Denies confusion or altered mental status. Denies loss of consciousness. Denies dizziness or lightheadedness. Denies headache. Denies weakness or paralysis. Denies problems difficulty with ambulation, slurred speech. Denies sensory loss, numbness, or tingling. Denies seizures. PSYCHIATRIC: Denies anxiety or stress. Denies depression, suicidal ideation, or homicidal ideation. Denies visual or auditory hallucinations. Physical Exam - Vital signs Vitals: Temp Pulse Resp BP Pulse Ox 98.3 F 70 16 109/71 98 09/12/18 15:41 09/12/18 15:41 09/12/18 15:41 09/12/18 15:41 09/12/18 15:41 - Notes Notes: PHYSICAL EXAMINATION: GENERAL: Well-appearing, well-nourished and in no acute distress. HEAD: Atraumatic, normocephalic. EYES: Pupils equal round and reactive to light, extraocular movements intact, conjunctiva are normal. ENT: Nares patent, oropharynx clear without exudates. Moist mucous membranes. NECK: Normal range of motion, supple without lymphadenopathy LUNGS: Breath sounds clear to auscultation bilaterally and equal. No wheezes rales or rhonchi. HEART: Regular rate and rhythm without murmurs ABDOMEN: Tenderness to palpation in the left upper quadrant. No guarding, no rebound. No masses appreciated. Female : deferred Musculoskeletal: Normal range of motion, no pitting or edema. No cyanosis. NEUROLOGICAL: Cranial nerves grossly intact. Normal speech, normal gait. Normal sensory, motor exams PSYCH: Normal mood, normal affect. SKIN: Warm, Dry, normal turgor, no rashes or lesions noted. Course - Re-evaluation Re-evalutation: 09/12/18 20:03 28-year-old female who was diagnosed with colitis yesterday presents with complaint of abdominal pain in the left upper quadrant. Upon arrival vitals were reviewed and within normal limits. Patient is afebrile, normotensive and not hypoxic. Patient does not appear toxic or dehydrated. She is in no acute distress. Previous medical records and nursing notes reviewed. Yesterday's workup which included CBC, CMP, urinalysis and CT of the abdomen and pelvis were also reviewed. At this time besides pain management I have nothing further to offer the patient. She is tolerating her antibiotics. She has not vomited. Patient did receive Toradol and Dilaudid during her ED course. On reevaluation she states the pain has greatly improved. Patient was advised to follow a clear liquid diet for the next several days and follow-up with her primary care physician as soon as possible. Patient was provided copies of her CAT scan report yesterday. I have added Percocet and Zofran to her prescriptions. Patient was evaluated and treated as appropriate for the patient 's presenting symptoms and complaint, with consideration of any critical or life threatening conditions that may be associated with their obtained history and exam as noted above. All results were discussed with patient and her . Patient provided the opportunity to ask questions, and express concerns. Patient was educated on treatments based on their presumed diagnosis as noted above. At this time we will discharge the patient with return precautions and follow-up recommendations. Verbal discharge instructions given a the bedside. Medication warnings reviewed. Patient is in agreement with this plan and has verbalized understanding of return precautions. After careful consideration I feel that that patient can be safely discharged from the emergency department, they were advised to followup with a primary care physician in 2-3 days. Dictation on this chart was performed using voice recognition software and may result in unintended grammatical, spelling, syntax or errors. 09/12/18 20:03 - Vital Signs Vital signs: Temp Pulse Resp BP Pulse Ox 99.4 F 73 16 112/73 100 09/12/18 17:05 09/12/18 17:05 09/12/18 15:41 09/12/18 17:05 09/12/18 17:05 - Diagnostic Test Radiology reviewed: Image reviewed, Reports reviewed Discharge - Discharge Clinical Impression: Colitis, Abdominal pain, left upper quadrant Condition: Good Disposition: HOME, SELF-CARE Instructions: Abdominal Pain ([facility]), Colitis, Nonspecific ([facility]) Additional Instructions: Please follow-up with your primary care physician in the next 2 days. Follow up with your [id number] hours for further care or return to the ED IMMEDIATELY if symptoms worsen or you have any concerns. If you cannot afford to follow up with your primary care physician a list of low cost clinics have been provided at the end of your discharge papers as well. Most prescribed medications have multiple side effects. The safest thing to do is when filling your prescription speak to your pharmacist regarding possible interactions with your normal home medications and over the counter medications such as Ibuprofen, Tylenol, Benadryl. If you experience any symptoms that cause you discomfort or concern you should discontinue the medication immediately and return to the emergency room or call your primary care physician. Prescriptions: Ondansetron [Zofran Odt 4 mg Tablet] 1 tab PO Q6H PRN #15 tab.rapdis PRN Reason: For Nausea/Vomiting Oxycodone HCl/Acetaminophen [Percocet 5-325 mg Tablet] 1 tab PO Q6H PRN #15 tablet PRN Reason: Referrals: JERAD OCHOA MD [Primary Care Provider] - Follow up as needed
[2018-09-12 17:08] VITALS: BP 112/73
== END 2018-09-12 17:07 | disposition home or self-care (01) ==
LOC: ER 15:32
DX: K52.9 Noninfective gastroenteritis and colitis, unspecified (principal); R10.12 Left upper quadrant pain; R10.11 Right upper quadrant pain; Z88.6 Allergy status to analgesic agent
CPT/HCPCS: 99284; 96372; J1885; J3490

== ENCOUNTER 2018-11-12 13:35 | Emergency (ER) | payer MEDICAID ==
[2018-11-12 13:57] VITALS: BP 119/73
[2018-11-12] MEDS ORDERED: GUAIFENESIN 600 MG TABLET.SA PO ONE (15:20)
[2018-11-12] MEDS ORDERED: LORATADINE 10 MG TABLET PO ONE (15:20)
[2018-11-12] MEDS ORDERED: PSEUDOEPHEDRINE HCL 30 MG TABLET PO ONE (15:20)
[2018-11-12] MEDS ORDERED: IBUPROFEN 800 MG TABLET PO ONE (15:20)
[2018-11-12] MEDS ORDERED: CIPROFLOXACIN HCL/DEXAMETH OTIC DROP 7.5 ML AD ONE (15:20)
--- NOTE | 2018-11-12 15:27 | ER Document Report ---
ED ENT - General Chief Complaint: Cold Symptoms Stated Complaint: SORE THROAT Time Seen by Provider: 11/12/18 14:39 Primary Care Provider: JERAD OCHOA MD [Primary Care Provider] - Follow up as needed Mode of Arrival: Ambulatory Information source: Patient Notes: 28-year-old female presented to ED for complaint of runny nose cough congestion sore throat headache and ear pain times a week. She does have pain and discharge to the right ear canal. She states she was seen by a provider earlier this week with nothing prescribed. Patient is alert and oriented respirations regular and unlabored speaking in full sentences with pain to any movement of the right ear. TRAVEL OUTSIDE OF THE [place] IN LAST 30 DAYS: No - HPI Patient complains to provider of: Ear problem, Nose problem Onset: Last week Onset/Duration: Gradual Quality of pain: Achy, Sharp Severity: Moderate Pain Level: 4 Context: Recent Illness Location of pain: Ears, Nose, Sinus Associated symptoms: Congestion, Cough, Ear pain, Runny nose, Sinus pain, Sinus drainage, Sore throat Similar symptoms previously: Yes Recently seen / treated by doctor: No - Related Data Allergies/Adverse Reactions: apple Allergy (Intermediate, Verified 11/12/18 13:36) Generalized Itching penicillin G Allergy (Verified 11/12/18 13:36) Past Medical History - General Information source: Patient - Social History Smoking Status: Never Smoker Chew tobacco use (# tins/day): No Frequency of alcohol use: None Drug Abuse: None 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: Family Family History: Reviewed & Not Pertinent Patient has suicidal ideation: No Patient has homicidal ideation: No - Past Medical History Cardiac Medical History: Reports: None Pulmonary Medical History: Reports: None EENT Medical History: Reports: None Neurological Medical History: Reports: None Endocrine Medical History: Reports: None Renal/ Medical History: Reports: None Malignancy Medical History: Reports: None GI Medical History: Reports: Hx Gastroesophageal Reflux Disease - during Musculoskeletal Medical History: Reports None Skin Medical History: Reports None Psychiatric Medical History: Reports: None Traumatic Medical History: Reports: None Infectious Medical History: Reports: None Past Surgical History: Reports: Hx Section, Hx Oral Surgery - [place] teeth - Immunizations Immunizations up to date: Yes Review of Systems - Review of Systems Constitutional: Chills, Recent illness EENT: Ear pain, Nose discharge, Sinus discharge, Throat pain Cardiovascular: No symptoms reported Respiratory: Cough Gastrointestinal: No symptoms reported Genitourinary: No symptoms reported Female Genitourinary: No symptoms reported Musculoskeletal: No symptoms reported Skin: No symptoms reported Hematologic/Lymphatic: No symptoms reported Neurological/Psychological: Headaches -: Yes All other systems reviewed and negative Physical Exam - Vital signs Vitals: Temp Pulse Resp BP Pulse Ox 98.0 F 84 16 119/73 100 11/12/18 13:54 11/12/18 13:54 11/12/18 13:54 11/12/18 13:54 11/12/18 13:54 Interpretation: Normal - General General appearance: Appears well, Alert - HEENT Head: Normocephalic, Atraumatic Eyes: Normal Pupils: PERRL Ears: Other - Tenderness to any movement of the ear External canal: Erythema, Swollen Tympanic membrane: Normal Sinus: Normal Nasal: Purulent discharge, Swelling Mouth/Lips: Normal Mucous membranes: Normal Pharynx: Post nasal drainage. No: Erythema, Exudate, Tonsillar hypertrophy Neck: Anterior cervical chain - Respiratory Respiratory status: No respiratory distress Chest status: Nontender Breath sounds: Nonproductive cough Chest palpation: Normal - Cardiovascular Rhythm: Regular Heart sounds: Normal auscultation Murmur: No - Abdominal Inspection: Normal Distension: No distension Bowel sounds: Normal Tenderness: Nontender Organomegaly: No organomegaly - Back Back: Normal, Nontender - Extremities General upper extremity: Normal inspection, Nontender, Normal color, Normal ROM, Normal temperature General lower extremity: Normal inspection, Nontender, Normal color, Normal ROM, Normal temperature, Normal weight bearing. No: Loren's sign - Neurological Neuro grossly intact: Yes Cognition: Normal Orientation: AAOx4 Cheryl Coma Scale Eye Opening: Spontaneous Cheryl Coma Scale Verbal: Oriented Cheryl Coma Scale Motor: Obeys Commands Cher[place] Coma Scale Total: 15 Speech: Normal Motor strength normal: LUE, RUE, LLE, RLE Sensory: Normal - Psychological Associated symptoms: Normal affect, Normal mood - Skin Skin Temperature: Warm Skin Moisture: Dry Skin Color: Normal Course - Vital Signs Vital signs: Temp Pulse Resp BP Pulse Ox 98.0 F 84 16 119/73 100 11/12/18 13:54 11/12/18 13:54 11/12/18 13:54 11/12/18 13:54 11/12/18 13:54 Discharge - Discharge Clinical Impression: URI (upper respiratory infection) Qualifiers: URI type: unspecified URI Qualified Code(s): J06.9 - Acute upper respiratory infection, unspecified Otitis externa Qualifiers: Otitis externa type: unspecified type Chronicity: acute Laterality: right Qualified Code(s): H60.501 - Unspecified acute noninfective otitis externa, right ear Condition: Stable Disposition: HOME, SELF-CARE Additional Instructions: OTITIS EXTERNA: You have otitis externa -- an infection of the outer ear canal. This can be very painful. It's sometimes called "swimmer's ear," because it often occurs after prolonged water exposure. Many things, such as earwax and dirt in the ear, can contribute to it. The usual treatment is antibiotic/antiinflammatory ear drops. Occasionally, a wick will be placed in the ear to draw in the medicine. If the infection is severe, an oral antibiotic may be prescribed. Pain medication is often needed. Avoid getting water in the ear. Outer ear infections often take longer to heal than you might expect. Some tenderness and ache in the ear may persist for about two weeks. See your physician if you fail to improve as expected. Call the doctor at once if you develop fever, increasing swelling (particularly if it makes your ear "poke out"), severe headache, stiff neck, or decreased hearing. UPPER RESPIRATORY ILLNESS: You have a viral infection of the respiratory passages -- a "cold." This common infection causes nasal congestion, drainage, and often sore throat and cough. It is highly contagious. The disease usually lasts about 10 to 14 days. There is no "cure" for the viral infection -- it must run its course. If there is a complication, such as bacterial infection in the nose, sinuses, middle ear, or bronchial tubes, antibiotics may be required. The antibiotics won't affect the virus. Drink plenty of fluids. A humidifier may help. An expectorant medication or decongestant may make you more comfortable. Use acetaminophen or ibuprofen for fever or aches. See the doctor if fever persists over two days, if there is any significant worsening of your symptoms, or if you simply fail to improve as expected. USE OF EAR DROPS: Your ear drops won't do much good if they don't get all the way in. To help the ear drops penetrate all the way to the ear drum, use the following technique. If you encounter problems of any kind, notify the physician. (1) Lay your head sideways on a pillow. (2) Place the dropper tip just barely inside the ear canal, almost touching the bottom side of the canal. The liquid is tolerated better on the bottom of the canal. (3) Squeeze out the appropriate amount of medicine, and remove the dropper. (4) Grab the back of the ear (just behind the ear canal) between your index finger and thumb. (5) Tug up, then let the ear drop back. Repeat several times. This pumps the medicine down. (6) Wait five minutes, then place a cotton ball in the ear canal to catch and hold the medicine. CIPROFLOXACIN: You have been given an antibacterial agent, ciprofloxacin (Cipro). This medicine is not related to the penicillins, sulfas, cephalosporins, or tetracyclines. It is often given to patients who are allergic to these drugs. It has been chosen for you either because other drugs are not appropriate, or because of the nature of your problem. Cipro should not be taken with antacids, as these can decrease its effectiveness. It can be taken without regard to meals. CIPRO SHOULD NOT BE TAKEN BY CHILDREN, NURSING WOMEN, OR WOMEN. Although Cipro is usually well-tolerated, common side effects can include nausea and diarrhea. Contact your doctor if you experience any unusual symptoms while on this medication, such as joint pain or swelling, shortness of breath, wheezing, faintness, or hives. USE OF ACETAMINOPHEN (Tylenol): Acetaminophen may be taken for pain relief or fever control. It's much safer than aspirin, offering a wider range of "safe" dosages. It is safe during . Some brand names are Tylenol, Panadol, Datril, Anacin 3, Tempra, and Liquiprin. Acetaminophen can be repeated every four hours. The following are maximum recommended dosages: WEIGHT Dose Drops Elixir Chewable(80mg) (LBS.) drprs=droppers tsp=teaspoon 6 40 mg 0.4 ml (1/2) 6-11 80 mg 0.8 ml (full) tsp 1 tab 12-16 120 mg 1 1/2 drprs 3/4 tsp 1 1/2 tabs 17-23 160 mg 2 drprs 1 tsp 2 tabs 24-30 240 mg 3 drprs 1 1/2 tsp 3 tabs 30-35 320 mg 2 tsp 4 tabs 36-41 360 mg 2 1/4 tsp 4 1/2 tabs 42-47 400 mg 2 1/2 tsp 5 tabs 48-53 480 mg 3 tsp 6 tabs 54-59 520 mg 3 1/4 tsp 6 1/2 tabs 60-64 560 mg 3 1/2 tsp 7 tabs 65-70 600 mg 3 3/4 tsp 7 1/2 tabs 71-76 640 mg 4 tsp 8 tabs 77-82 720 mg 4 1/2 tsp 9 tabs 83-88 800 mg 5 tsp 10 tabs >89 pounds or adults 650 mg to 900 mg Acetaminophen can be repeated every four hours. Maximum dose not to exceed 4000 mg a day. These maximum recommended dosages are slightly higher than the dosages written on the product container, but these dosages are very safe and below the toxic dosage for acetaminophen. Been treated with Claritin 10 mg Sudafed 30 mg Mucinex 600 mg and ibuprofen 800 mg for your cough cold congestion. You will also been treated with Ciprodex eardrops for your pain and discomfort in your right ear canal. You can also use Flonase nasal spray to the nose to decrease this secretions from your nose which will decrease the drainage to the back your throat which will decrease your throat pain. You can also use Chloraseptic spray for use sore throat. Salt and soda solution gargles will also decrease the secretions to your back your throat which is causing your sore throat. Salt and soda solution 1 quart of water 1 tablespoon of salt 1 teaspoon of baking soda Mixed 3 ingredients together and boil for 1 minute Placed in a covered quart jar Use 1/2 ounce of cold solution to gargle 3 times a day FOLLOW-UP CARE: If you have been referred to a physician for follow-up care, call the physicians office for an appointment as you were instructed or within the next two days. If you experience worsening or a significant change in your symptoms, notify the physician immediately or return to the Emergency Department at any time for re-evaluation. Prescriptions: Ciprofloxacin HCl/Dexameth [Ciprodex Otic Suspension 7.5 ml Bottle] 4 drop RT_EAR BID #1 bottle Forms: Return to Work Referrals: JERAD OCHOA MD [Primary Care Provider] - Follow up as needed
== END 2018-11-12 15:40 | disposition home or self-care (01) ==
LOC: ER 13:35
DX: J06.9 Acute upper respiratory infection, unspecified (principal); H60.501 Unspecified acute noninfective otitis externa, right ear; J02.9 Acute pharyngitis, unspecified; R09.89 Other specified symptoms and signs involving the circulatory and respiratory systems; R05 Cough; R09.81 Nasal congestion; R51 Headache
CPT/HCPCS: 99282; J3490 ×4

== ENCOUNTER 2019-10-25 14:40 | Emergency (ER) | payer MEDICAID ==
[2019-10-25 14:46] VITALS: BP 136/80
[2019-10-25] MEDS ORDERED: NORMAL SALINE 1000 ML 1,000 ML IV ONE (16:27)
--- NOTE | 2019-10-25 16:27 | ER Document Report ---
ED Medical Screen (RME) - General Chief Complaint: Headache Stated Complaint: HEADACHE,WEAKNESS,BLOOD IN STOOL Time Seen by Provider: 10/25/19 16:21 Primary Care Provider: JERAD OCHOA MD [Primary Care Provider] - Follow up as needed Mode of Arrival: Ambulatory Information source: Patient Notes: 29-year-old female presented to ED for complaint of headache for the last 4 days. She states she usually can just take ibuprofen and the headaches go away but this 1 has not gone away. She states she went to the urgent care and they told her she had to come back to the emergency room because she also had some blood flecks noted in the stool and on the paper. She states she did not have a lot of blood in the commode just on the stool and on the paper. She states that is been yesterday but she has not gone to the bathroom today. I have discussed with patient treatment of her headache and getting a sample of stool and urine and then following up with those samples. Will treat her with Compazine Toradol and Benadryl and IV fluids. TRAVEL OUTSIDE OF THE [place] IN LAST 30 DAYS: No - HPI Onset: Yesterday Quality of pain: Cramping, Sharp Severity: Severe Pain Level: 5 Associated Symptoms: Headache, Other - Flecks of blood on her stool last the headaches worse with movement walking to anything target Exacerbated by: Movement Relieved by: Denies Similar symptoms previously: Yes Recently seen / treated by doctor: Yes - You smoke - Related Data Smoking: Non-smoker Frequency of alcohol use: Rare Drug Abuse: None Allergies/Adverse Reactions: apple Allergy (Intermediate, Verified 11/12/18 13:36) Generalized Itching penicillin G Allergy (Verified 11/12/18 13:36) Past Medical History - General Information source: Patient - Social History Cigarette use (# per day): No Frequency of alcohol use: Rare Drug Abuse: None Occupation: [id number] mom Lives with: Family Family history: Reviewed & Not Pertinent - Past Medical History Cardiac Medical History: Reports: None Pulmonary Medical History: Reports: None - Medical history besides the migraines anything else EENT Medical History: Reports: None Neurological Medical History: Reports: Hx Migraine Endocrine Medical History: Reports: None Renal/ Medical History: Reports: None Malignancy Medical History: Reports: None GI Medical History: Reports: Hx Gastroesophageal Reflux Disease - during Musculoskeltal Medical History: Reports None Skin Medical History: Reports None Psychiatric Medical History: Reports: None Traumatic Medical History: Reports: None Past Surgical History: Reports: Hx Section - X2, Hx Oral Surgery - [place] teeth - Immunizations Immunizations up to date: Yes Review of Systems - Review of Systems Constitutional: No symptoms reported EENT: No symptoms reported Cardiovascular: No symptoms reported Respiratory: No symptoms reported Gastrointestinal: No symptoms reported Genitourinary: No symptoms reported Female Genitourinary: No symptoms reported Musculoskeletal: No symptoms reported Skin: No symptoms reported Hematologic/Lymphatic: No symptoms reported Neurological/Psychological: No symptoms reported -: Yes All other systems reviewed and negative Physical Exam - Vital signs Vitals: Temp Pulse Resp BP Pulse Ox 98.4 F 87 16 136/80 H 99 10/25/19 14:45 10/25/19 14:45 10/25/19 14:45 10/25/19 14:45 10/25/19 14:45 Interpretation: Normal - General General appearance: Appears well, Alert - HEENT Head: Normocephalic, Atraumatic Eyes: Normal Pupils: PERRL - Respiratory Respiratory status: No respiratory distress Chest status: Nontender Breath sounds: Normal Chest palpation: Normal - Cardiovascular Rhythm: Regular Heart sounds: Normal auscultation Murmur: No - Abdominal Inspection: Normal Distension: No distension Bowel sounds: Normal Tenderness: Tender - Cramps right pelvic when moves Organomegaly: No organomegaly - Back Back: Normal, Nontender - Extremities General upper extremity: Normal inspection, Nontender, Normal color, Normal ROM, Normal temperature General lower extremity: Normal inspection, Nontender, Normal color, Normal ROM, Normal temperature, Normal weight bearing. 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 Staff stated she left with the IV in place and they did call ASHWINI D as she had IV intact. - Vital Signs Vital signs: Temp Pulse Resp BP Pulse Ox 98.4 F 87 16 136/80 H 99 10/25/19 14:45 10/25/19 14:45 10/25/19 14:45 10/25/19 14:45 10/25/19 14:45 - Laboratory Laboratory results interpreted by me: 10/25/19 18:00 Urine Blood SMALL H Leukocyte Esterase Rfl MODERATE H Doctor's Discharge - Discharge Clinical Impression: Blood in stool Headache Qualifiers: Headache type: unspecified Headache chronicity pattern: unspecified pattern Intractability: not intractable Qualified Code(s): R51 - Headache Disposition: ELOPED Referrals: JERAD OCHOA MD [Primary Care Provider] - Follow up as needed
[2019-10-25] MEDS ORDERED: DIPHENHYDRAMINE HCL 50 MG/ML VIAL IV ONE (16:28)
[2019-10-25] MEDS ORDERED: PROCHLORPERAZINE EDISYLATE INJ 10 MG/2 ML VIAL IV ONE (16:28)
[2019-10-25] MEDS ORDERED: KETOROLAC TROMETHAMINE INJ/PF 30 MG/1 ML SDV IV ONE (16:28)
[2019-10-25 18:34] LABS: APPEARANCE,URINE SLIGHTLY-CLOUDY; BILIRUBIN,URINE NEGATIVE (NEGATIVE); COLOR,URINE YELLOW; GLUCOSE, URINE NEGATIVE (NEGATIVE); KETONES,URINE NEGATIVE (NEGATIVE); PROTEIN,URINE NEGATIVE (NEGATIVE); URINE SPECIFIC GRAVITY 1.011; UROBILINOGEN,URINE NEGATIVE mg/dL (<2.0)
== END 2019-10-25 19:25 | disposition left against medical advice (07) ==
LOC: ER 14:40
DX: K92.1 Melena (principal); R51 Headache; R53.1 Weakness; Z88.0 Allergy status to penicillin
CPT/HCPCS: 99281; 96361; 96374; 96375; 81025; 81001; J1200; J1885; J0780; J7030

== ENCOUNTER → 2019-11-01 | Outpatient (CLI) | payer MEDICAID | LOC: OD 07:10 | PROVIDERS: ATTEND Nurse Practitioner Acute Care | DX: N91.2 Amenorrhea, unspecified (principal) | CPT/HCPCS: 36415; 84702 ==

== ENCOUNTER 2019-11-07 18:14 | Emergency (ER) | payer MEDICAID ==
--- NOTE | 2019-11-07 19:38 | ER Document Report ---
ED Medical Screen (RME) - General Chief Complaint: Vaginal Bleeding Stated Complaint: ABDOMINAL CRAMPING/VAGINAL BLEEDING Time Seen by Provider: 11/07/19 19:32 Primary Care Provider: MARLA AUSTIN NP [Primary Care Provider] - Follow up as needed Mode of Arrival: Ambulatory Information source: Patient Notes: 29-year-old female approximately 4 to 5 weeks presents to the emergency department with complaints of recent positive hCG. Reports that she had some cramps yesterday and today now she is having vaginal bleeding. She has been seen by [facility]. A Transvaginal ultrasound was completed. She reports they did not see a gestational sac. She declines Tylenol at this time. She reports she is bleeding like she is having irregular menses. I have greeted and performed a rapid initial assessment of this patient. A comprehensive ED assessment and evaluation of the patient, analysis of test results and completion of the medical decision making process will be conducted by additional ED providers. TRAVEL OUTSIDE OF THE [place] IN LAST 30 DAYS: No - Related Data Allergies/Adverse Reactions: apple Allergy (Intermediate, Verified 11/07/19 19:32) Generalized Itching penicillin G Allergy (Verified 11/07/19 19:32) Past Medical History - Social History Family history: Reviewed & Not Pertinent Neurological Medical History: Reports: Hx Migraine Renal/ Medical History: Denies: Hx Peritoneal Dialysis GI Medical History: Reports: Hx Gastroesophageal Reflux Disease - during . Denies: Hx Hiatal Hernia, Hx Ulcer Past Surgical History: Reports: Hx Section - X2, Hx Oral Surgery - [place] teeth - Immunizations Immunizations up to date: Yes Physical Exam - Vital signs Vitals: Temp Pulse Resp BP Pulse Ox 98.2 F 101 H 18 138/81 H 97 11/07/19 18:20 11/07/19 18:20 11/07/19 18:20 11/07/19 18:20 11/07/19 18:20 Course - Vital Signs Vital signs: Temp Pulse Resp BP Pulse Ox 98.2 F 101 H 18 138/81 H 97 11/07/19 18:20 11/07/19 18:20 11/07/19 18:20 11/07/19 18:20 11/07/19 18:20 Doctor's Discharge - Discharge Referrals: MARLA AUSTIN NP [Primary Care Provider] - Follow up as needed
[2019-11-07 20:26] LABS: ABSOLUTE EOSINOPHILS # (AUTO) 0.2 10^3/uL (0.0-0.6); ABSOLUTE LYMPHOCYTES (AUTO) 3.1 10^3/uL (0.5-4.7); ABSOLUTE MONOCYTES (AUTO) 0.7 10^3/uL (0.1-1.4); ABSOLUTE NEUT (AUTO) 5.1 10^3/uL (1.7-8.2); BASOPHILS % (AUTO) 0.5 % (0-2); HEMATOCRIT 39.2 % (36.0-47.0); HEMOGLOBIN 13.3 g/dL (12.0-15.5); MEAN CORPUSCULAR HEMOGLOBIN 30.3 pg (27.0-33.4); MEAN CORPUSCULAR HGB CONC 33.9 g/dL (32.0-36.0); MEAN CORPUSCULAR VOLUME 90 fl (80-97); MONOCYTES % (AUTO) 7.3 % (3-13); PLATELET COUNT 297 10^3/uL (150-450); RED BLOOD COUNT 4.38 10^6/uL (3.72-5.28); RED CELL DISTRIBUTION WIDTH 12.9 % (11.5-14.0); SEGMENTED NEUTROPHILS % (AUTO) 56.2 % (42-78); TOTAL CELLS COUNTED % (AUTO) 100 %; WHITE BLOOD COUNT 9.1 10^3/uL (4.0-10.5)
[2019-11-07 20:47] LABS: ALBUMIN 4.1 g/dL (3.5-5.0); ALKALINE PHOSPHATASE 103 U/L (38-126); ANION GAP 8 (5-19); ASPARTATE AMINO TRANSFERASE 95 U/L (14-36); BILIRUBIN,DIRECT 0.2 mg/dL (0.0-0.4); BILIRUBIN,TOTAL 0.2 mg/dL (0.2-1.3); BLOOD UREA NITROGEN 14 mg/dL (7-20); CALCIUM 9.5 mg/dL (8.4-10.2); CARBON DIOXIDE 28 mmol/L (22-30); CHLORIDE 102 mmol/L (98-107); GLUCOSE 128 mg/dL (75-110); POTASSIUM 4.7 mmol/L (3.6-5.0); TOTAL PROTEIN 7.4 g/dL (6.3-8.2)
--- NOTE | 2019-11-08 00:37 | ER Document Report ---
HPI - HPI Time Seen by Provider: 11/07/19 19:32 Pain Level: 1 Notes: 29-year-old female patient G3, P2 presents the emergency department chief complaint of vaginal bleeding in the setting of . Patient reports she is approximately 4 to 6 weeks . She states that she was seen at [facility] yesterday where they did a quantitative hCG that they told her was very low and they also did a transvaginal ultrasound that showed no gestational sac according to the patient. Patient reports increased cramping and continued bleeding. She states she is changing a pad every 3-4 hours. Denies any dizziness, syncope or any other symptoms. - REPRODUCTIVE Reproductive: REPORTS: : Past Medical History - General Information source: Patient - Social History Smoking Status: Never Smoker Family History: Reviewed & Not Pertinent Patient has suicidal ideation: No Patient has homicidal ideation: No Neurological Medical History: Reports: Hx Migraine Renal/ Medical History: Denies: Hx Peritoneal Dialysis GI Medical History: Reports: Hx Gastroesophageal Reflux Disease - during . Denies: Hx Hiatal Hernia, Hx Ulcer Past Surgical History: Reports: Hx Section - X2, Hx Oral Surgery - [place] teeth - Immunizations Immunizations up to date: Yes Vertical Provider Document - CONSTITUTIONAL Notes: PHYSICAL EXAMINATION: GENERAL: Well-appearing, well-nourished and in no acute distress. HEAD: Atraumatic, normocephalic. EYES: Pupils equal round and reactive to light, extraocular movements intact, conjunctiva are normal. ENT: Nares patent, oropharynx clear without exudates. Moist mucous membranes. NECK: Normal range of motion, supple without lymphadenopathy LUNGS: Breath sounds clear to auscultation bilaterally and equal. No wheezes rales or rhonchi. HEART: Regular rate and rhythm without murmurs ABDOMEN: Soft, nontender, nondistended abdomen. No guarding, no rebound. No masses appreciated. Female : deferred Musculoskeletal: Normal range of motion, no pitting or edema. No cyanosis. NEUROLOGICAL: Cranial nerves grossly intact. Normal speech, normal gait. Normal sensory, motor exams PSYCH: Normal mood, normal affect. SKIN: Warm, Dry, normal turgor, no rashes or lesions noted. - INFECTION CONTROL TRAVEL OUTSIDE OF THE [place] IN LAST 30 DAYS: No Course - Re-evaluation Re-evalutation: 02/13/20 01:04 Laboratory 11/07/19 11/07/19 20:05 20:05 WBC 9.1 RBC 4.38 Hgb 13.3 Hct 39.2 MCV 90 MCH 30.3 MCHC 33.9 RDW 12.9 Plt Count 297 Lymph % (Auto) 34.0 Ford % (Auto) 7.3 Eos % (Auto) 2.0 Baso % (Auto) 0.5 Absolute Neuts (auto) 5.1 Absolute Lymphs (auto) 3.1 Absolute Monos (auto) 0.7 Absolute Eos (auto) 0.2 Absolute Basos (auto) 0.0 Seg Neutrophils % 56.2 Sodium 137.5 Potassium 4.7 Chloride 102 Carbon Dioxide 28 Anion Gap 8 BUN 14 Creatinine 0.50 L Est GFR ( Amer) > 60 Est GFR (MDRD) Non-Af > 60 Glucose 128 H Calcium 9.5 Total Bilirubin 0.2 Direct Bilirubin 0.2 Neonat Total Bilirubin Not Reportable Neonat Direct Bilirubin Not Reportable Neonat Indirect Bili Not Reportable AST 95 H ALT 144 Alkaline Phosphatase 103 Total Protein 7.4 Albumin 4.1 Beta HCG, Quant 95.25 H Total Beta HCG POSITIVE Quantitative hCG today is 95, likely early miscarriage. Will repeat transvaginal ultrasound with plans to discharge patient home with close follow- [facility] with [facility]. - Vital Signs Vital signs: Temp Pulse Resp BP Pulse Ox 98.2 F 101 H 18 138/81 H 97 11/07/19 18:20 11/07/19 18:20 11/07/19 18:20 11/07/19 18:20 11/07/19 18:20 - Laboratory Result Diagrams: 11/07/19 20:05 11/07/19 20:05 Laboratory results interpreted by me: 11/07/19 20:05 Creatinine 0.50 L Glucose 128 H AST 95 H Beta HCG, Quant 95.25 H Discharge - Discharge Clinical Impression: Miscarriage Condition: Stable Disposition: HOME, SELF-CARE Additional Instructions: Please keep follow-up appointment with [facility]. It seems that you have suffered a miscarriage. Please drink plenty of fluids, stay hydrated. You may safely take Tylenol for pain or cramping. Please return to the emergency department if you experience increased bleeding that is bleeding through more than 1 pad per hour for 4 hours consecutively, you pass out or any other concerning symptoms. Referrals: ELIZABETH VALVERDE MD [ACTIVE STAFF] - Follow up as needed
--- NOTE | 2019-11-08 01:41 | RADIOLOGY REPORT (SQ) ---
Ultrasound OB transvaginal on 11/08/2019 CLINICAL INDICATION: Early , vaginal bleeding COMPARISON: None FINDINGS: Multiple sonographic images are obtained throughout the pelvis by transvaginal approach, both transverse and sagittal images are obtained. The uterus is retroverted/retroflexed. Uterus measures approximately 8.2 x 4.4 x 5.7 cm. Right ovary measures approximately 2.5 x 1.6 x 1.9 cm. Flow is demonstrated in the right ovary. Left ovary measures approximately 3.4 x 1.6 x 1.9 cm. Flow is demonstrated in the left ovary. Endometrial stripe measures 5 mm. No intrauterine is identified. The patient's beta hCG however is reportedly only 95 and no intrauterine would be expected be identified at such a low level. Clinical follow-up will be needed. Uterine myometrium appears homogeneous. IMPRESSION: Unremarkable exam for the patient's very low beta hCG level. Recommend clinical follow-up and short-term follow-up imaging when indicated.
[2019-11-08 02:49] VITALS: BP 126/80
== END 2019-11-08 02:49 | disposition home or self-care (01) ==
LOC: ER 18:14
DX: O03.9 Complete or unspecified spontaneous abortion without complication (principal); Z3A.01 Less than 8 weeks gestation of pregnancy
CPT/HCPCS: 36415; 76817; 80053; 84702; 85025; 86900; 86901

== ENCOUNTER 2020-08-07 22:57 | Emergency (ER) | payer MEDICAID ==
[2020-08-07 23:38] VITALS: BP 140/93
[2020-08-08] MEDS ORDERED: IBUPROFEN 600 MG TABLET PO ONE (00:56)
--- NOTE | 2020-08-08 00:56 | ER Document Report ---
ED General - General Stated Complaint: POSSIBLE UTI/HEADACHE Time Seen by Provider: 08/08/20 00:35 Primary Care Provider: MARLA AUSTIN NP [Primary Care Provider] - Follow up as needed Mode of Arrival: Ambulatory Information source: Patient Notes: Patient is a 21-year-old female comes emergency room with 2 major complaints 1 is a headache and the second is urinary urgency. Patient states that she started on Tuesday with some low back pain difficulty walking on Tuesday and Tuesday but that seems of gotten better. She also states she started with a headache on Tuesday that is left-sided. Patient does state that she has a history of migraines and was similar at that point time but it seems to have changed slightly when she leans forward the headache seems to get better. She has noticed some nasal congestion. She denies any fevers. She denies any thunderclap type of a presentation of this headache and no visual changes. Patient is current vital signs show a temp of 98.1 heart rate of 85 with a blood pressure of 140/93. Patient takes oral control does not know the name. She is not a smoker. 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 Patient was tested for COVID-19 on July 11 and it was negative. TRAVEL OUTSIDE OF THE [place] IN LAST 30 DAYS: No - HPI Onset: Other - 4 days ago Onset/Duration: Gradual Quality of pain: Achy, Throbbing Severity: Moderate Pain Level: 3 Associated symptoms: Chills, Headache, Rhinnorhea. denies: Fever Exacerbated by: Denies Relieved by: Denies Similar symptoms previously: No Recently seen / treated by doctor: No - Related Data Allergies/Adverse Reactions: apple Allergy (Intermediate, Verified 11/07/19 19:32) Generalized Itching penicillin G Allergy (Verified 11/07/19 19:32) Home Medications: BCP Past Medical History - General Information source: Patient - Social History Smoking Status: Never Smoker Cigarette use (# per day): No Chew tobacco use (# tins/day): No Smoking Education Provided: No Frequency of alcohol use: None Drug Abuse: None Lives with: Family, Spouse/Significant other Family History: Reviewed & Not Pertinent Neurological Medical History: Reports: Hx Migraine Renal/ Medical History: Denies: Hx Peritoneal Dialysis GI Medical History: Reports: Hx Gastroesophageal Reflux Disease - during pregna ncy. Denies: Hx Hiatal Hernia, Hx Ulcer Past Surgical History: Reports: Hx Section - X2, Hx Oral Surgery - [place] teeth - Immunizations Immunizations up to date: Yes Review of Systems - Review of Systems Constitutional: Chills EENT: Nose congestion, Sinus pressure Cardiovascular: No symptoms reported Respiratory: No symptoms reported Gastrointestinal: No symptoms reported Genitourinary: See HPI, Urgency Female Genitourinary: No symptoms reported Musculoskeletal: No symptoms reported Skin: No symptoms reported Hematologic/Lymphatic: No symptoms reported Neurological/Psychological: Headaches -: Yes All other systems reviewed and negative Physical Exam - Vital signs Vitals: Temp Pulse Resp BP Pulse Ox 98.1 F 85 16 140/93 H 100 08/07/20 23:34 08/07/20 23:34 08/07/20 23:34 08/07/20 23:34 08/07/20 23:34 Interpretation: Hypertensive - Notes Notes: PHYSICAL EXAMINATION: GENERAL: Well-appearing, well-nourished and in no acute distress. HEAD: Atraumatic, normocephalic. EYES: Pupils equal round and reactive to light, extraocular movements intact, conjunctiva are normal. ENT: Examination head and upper airway show nasal mucosa be moderately erythematous and edematous with bilateral nasal congestion noted left greater than right. Bilateral TMs bulging but no air-fluid levels are noted. Examination posterior pharynx shows mild erythema with drainage clear in color. No exudate is noted no encroachment upon the uvula. NECK: Normal range of motion, supple without lymphadenopathy LUNGS: Breath sounds clear to auscultation bilaterally and equal. No wheezes rales or rhonchi. HEART: Regular rate and rhythm without murmurs ABDOMEN: Examination patient's abdomen shows bowel sounds present all 4 quads in a sitting position there is no tenderness noted in those 4 quads or she does have some mild suprapubic tenderness to palpation. Female : deferred Musculoskeletal: Examination of patient's low back shows no reproducible tenderness to palpation may be a slight amount of lower CVA tenderness to percussion. Patient has good strength in bilateral lower extremities no sign of saddle paresthesia patient has sensation from her inner ankles to her groin as she does from her outer ankles to her hips. No foot drop noted in walking. Cranial nerves grossly intact. Normal speech, normal gait. Normal sensory, motor exams PSYCH: Normal mood, normal affect. SKIN: Warm, Dry, normal turgor, no rashes or lesions noted. Course - Vital Signs Vital signs: Temp Pulse Resp BP Pulse Ox 98.1 F 85 16 140/93 H 100 08/07/20 23:34 08/07/20 23:34 08/07/20 23:34 08/07/20 23:34 08/07/20 23:34 - Laboratory Laboratory results interpreted by me: 08/07/20 23:40 Urine Blood SMALL H Ur Leukocyte Esterase SMALL H Urine Ascorbic Acid 20 H Discharge - Discharge Clinical Impression: Urethritis Sinusitis Qualifiers: Sinusitis location: frontal Chronicity: acute Recurrence: non-recurrent Qualified Code(s): J01.10 - Acute frontal sinusitis, unspecified Disposition: HOME, SELF-CARE Instructions: Sinusitis ([facility]), Upper Respiratory Illness ([facility]), Urethritis ([facility]) Additional Instructions: Your symptoms of the low back and the feeling like you cannot empty your bladder go along with urethritis. Your had a little bit of blood still in your urine may be a what they called a slightly hemorrhagic cystitis because of the blood. No large amount of bacteria at this time. But given your symptoms we would not treat you with an antibiotic. Also we will place you on some Flonase for the nose and the headache. And place you on an antihistamine to help dry that up. You can take Tylenol or ibuprofen for the congestion and headache as well. And to follow-up with your primary care for further intervention and continuation of care in the next couple of days. Should you have any problems or concerns you can always return to ER for reevaluation. Prescriptions: Fluconazole [Diflucan] 150 mg PO ONCE PRN #1 tablet PRN Reason: Fluticasone Propionate [Flonase Nasal [place] 50 Mcg/[place] 16 gm] 2 sprays NASL Q12 #1 inhaler Cephalexin Monohydrate [Keflex 500 mg Capsule] 500 mg PO TID #21 capsule Phenazopyridine HCl [Pyridium 200 mg Tablet] 200 mg PO TID #6 tablet Cetirizine HCl [Zyrtec 10 mg Tablet] 10 mg PO DAILY #21 tablet Forms: Elevated Blood Pressure Referrals: MARLA AUSTIN NP [Primary Care Provider] - Follow up as needed
[2020-08-08 01:06] LABS: APPEARANCE,URINE SLIGHTLY-CLOUDY; BILIRUBIN,URINE NEGATIVE (NEGATIVE); COLOR,URINE YELLOW; GLUCOSE, URINE NEGATIVE (NEGATIVE); KETONES,URINE NEGATIVE (NEGATIVE); LEUKOCYTE ESTERASE,URINE SMALL (NEGATIVE); NITRITE,URINE NEGATIVE (NEGATIVE); PROTEIN,URINE NEGATIVE (NEGATIVE); URINE SPECIFIC GRAVITY 1.014; UROBILINOGEN,URINE NEGATIVE mg/dL (<2.0)
== END 2020-08-08 02:15 | disposition home or self-care (01) ==
LOC: ER 22:57
DX: J01.10 Acute frontal sinusitis, unspecified (principal); N34.2 Other urethritis; R51.9 Headache, unspecified; R39.15 Urgency of urination; R09.81 Nasal congestion; J34.89 Other specified disorders of nose and nasal sinuses; R68.83 Chills (without fever); Z79.3 Long term (current) use of hormonal contraceptives; Z86.69 Personal history of other diseases of the nervous system and sense organs; Z91.018 Allergy to other foods; Z88.0 Allergy status to penicillin
CPT/HCPCS: 99283; 81001; J3490